=== PATIENT | female | born 1945 | race Caucasian/White ===

== ENCOUNTER 2018-10-13 23:06 | Emergency (ER) | payer OTHER ==
--- NOTE | 2018-10-14 00:04 | EDPHYS ---
Physician Documentation [facility] Name: Sugey Lemus Age: 73 yrs Sex: Female : 1945 Arrival Date: 10/13/2018 Time: 23:07 Bed 5 Private MD: ED Physician Guzman Reid HPI: 10/13 23:57 This 73 yrs old Female presents to ER via EMS with complaints of shoulder rn injury. 23:57 The patient or guardian complains of an injury, pain. left shoulder. Context: The rn problem was sustained at home, resulted from a fall, The patient experiences decreased range of motion, The patient reports no obvious deformity. Onset: The symptoms/episode began/occurred just prior to arrival. Modifying factors: the symptoms are alleviated by remaining still, The symptoms are aggravated by movement, rotation of arm. Associated signs and symptoms: The patient has no apparent associated signs or symptoms, Pertinent negatives: Numbness in left arm tingling. Severity of symptoms: At their worst the symptoms were moderate, in the emergency department the symptoms are unchanged. The patient has not experienced similar symptoms in the past. Reports tripped on object, + left shoulder hit recliner, + isolated injury to left shoulder. No head injury, no LOC, no blood thinners. . Historical: - Allergies: 23:13 No Known Allergies; ak1 - Home Meds: 23:19 levothyroxine 200 mcg tab 1 tab once daily [Active]; atorvastatin 20 mg oral tab 1 tab aa1 once daily [Active]; losartan-hydrochlorothiazide 100-25 mg oral tab 1 tab once daily [Active]; amitriptyline 75 mg Oral tab 1 tab once daily [Active]; hyoscyamine sulfate 0.125 mg SL subl before meals [Active]; diclofenac sodium 50 mg oral TbEC 1 tab 2 times per day [Active]; diphenhydramine HCl 50 mg Oral cap 1 cap once daily [Active]; tramadol 50 mg Oral tab 1 tab every 6 hours [Active]; gabapentin 300 mg oral cap 1 cap 3 times per day [Active]; omeprazole 20 mg Oral cpDR 1 cap once daily [Active]; Wellbutrin SR 150 mg Oral TbER 1 tab 2 times per day [Active]; - Immunization history:: Adult Immunizations unknown. - Social history:: Smoking status: Patient uses tobacco products, smokes one-half pack cigarettes per day. - Ebola Screening: : No symptoms or risks identified at this time. - Family history:: not pertinent. - Hospitalizations: : No recent hospitalization is reported. ROS: 23:59 Constitutional: Negative for fever, chills, and weight loss, Eyes: Negative for injury, rn pain, redness, and discharge, Neck: Negative for injury, pain, and swelling, Cardiovascular: Negative for chest pain, palpitations, and edema, Respiratory: Negative for shortness of breath, cough, wheezing, and pleuritic chest pain, Abdomen/GI: Negative for abdominal pain, nausea, vomiting, diarrhea, and constipation, MS/Extremity: + left shoulder injury and pain Skin: Negative for injury, rash, and discoloration, Neuro: Negative for headache, weakness, numbness, tingling, and seizure. Exam: 23:59 Constitutional: This is a well developed, well nourished patient who is awake, alert, rn and in no acute distress. Head/Face: Normocephalic, atraumatic. Eyes: Pupils equal round and reactive to light, extra-ocular motions intact. Lids and lashes normal. Conjunctiva and sclera are non-icteric and not injected. Cornea within normal limits. Periorbital areas with no swelling, redness, or edema. ENT: Nares patent. No nasal discharge, no septal abnormalities noted. Tympanic membranes are normal and external auditory canals are clear. Oropharynx with no redness, swelling, or masses, exudates, or evidence of obstruction, uvula midline. Mucous membranes moist. Neck: Trachea midline, no thyromegaly or masses palpated, and no cervical lymphadenopathy. Supple, full range of motion without nuchal rigidity, or vertebral point tenderness. No Meningismus. Cardiovascular: Regular rate and rhythm with a normal S1 and S2. No gallops, murmurs, or rubs. Normal PMI, no JVD. No pulse deficits. Respiratory: Lungs have equal breath sounds bilaterally, clear to auscultation and percussion. No rales, rhonchi or wheezes noted. No increased work of breathing, no retractions or nasal flaring. Abdomen/GI: Soft, non-tender, with normal bowel sounds. No distension or tympany. No guarding or rebound. No evidence of tenderness throughout. Back: No spinal tenderness. No costovertebral tenderness. Full range of motion. MS/ Extremity: Pulses equal, no cyanosis. Neurovascular intact. + limited ROM left shoulder with tenderness proximal left humerus Neuro: Awake and alert, GCS 15, oriented to person, place, time, and situation. Cranial nerves II-XII grossly intact. Motor strength 5/5 in all extremities. Sensory grossly intact. Cerebellar exam normal. Normal gait. Vital Signs: 23:13 BP 93 / 46; Pulse 78; Resp 20; Temp 98.2(O); Pulse Ox 92% on R/A; Weight 102.06 kg (R); ak1 Height 5 ft. 3 in. (160.02 cm) (R); Pain 8/10; 23:46 BP 99 / 59; Pulse 77; Resp 20; Temp 98.2; Pulse Ox 92% on R/A; ak1 23:13 Body Mass Index 39.86 (102.06 kg, 160.02 cm) ak1 MDM: 23:09 Patient medically screened. rn 23:59 Differential diagnosis: Anterior dislocation with fracture, humeral head fracture, rn glenoid fracture. Data reviewed: vital signs, nurses notes, radiologic studies, plain films, and as a result, I will discharge patient. Counseling: I had a detailed discussion with the patient and/or guardian regarding: the historical points, exam findings, and any diagnostic results supporting the discharge/admit diagnosis, radiology results, the need for outpatient follow up, to return to the emergency department if symptoms worsen or persist or if there are any questions or concerns that arise at home. Response to treatment: the patient's symptoms have mildly improved after treatment. Special discussion: I discussed with the patient/guardian in detail that at this point there is no indication for admission to the hospital. It is understood, however, that if the symptoms persist or worsen the patient needs to return immediately for re-evaluation. 10/13 23:10 Order name: ALLI Humerus LEFT rn 10/13 23:10 Order name: ALLI Shoulder LEFT 2 view rn Administered Medications: No medications were administered Disposition: 10/14/18 00:03 Discharged to Home. Impression: Displaced proximal left humeral neck fracture, closed. - Condition is Stable. - Discharge Instructions: Humerus Fracture Treated With Immobilization. - Prescriptions for Tylenol- Codeine #3 300-30 mg Oral Tablet - take 1 tablet by ORAL route every 6 hours As needed; 20 tablet. - Medication Reconciliation Form, Thank You Letter, Antibiotic Education, Prescription Opioid Use form. - Follow up: Skip Perez MD; When: As needed; Reason: Recheck today's complaints, Re-evaluation by your physician. - Problem is new. - Symptoms have improved. Signatures: Dispatcher [employer] EDMS Catalina Houston, RN RN aa1 Guzman Reid MD MD rn Krenek, Amber, RN RN ak1 Corrections: (The following items were deleted from the chart) 23:59 23:57 Reports tripped on object, + left shoulder hit recliner, + isolated injury to rn left shoulder. . rn 10/14 00:20 00:03 10/14/2018 00:03 Discharged to Home. Impression: Displaced proximal left humeral ak1 neck fracture, closed. Condition is Stable. Forms are Medication Reconciliation Form, Thank You Letter, Antibiotic Education, Prescription Opioid Use. Follow up: Skip Perez; When: As needed; Reason: Recheck today's complaints, Re-evaluation by your physician. Problem is new. Symptoms have improved. rn
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
--- NOTE | 2018-10-14 09:02 | RAD REPORT ---
EXAM DESCRIPTION: RAD - Shoulder Left 2 View - 10/13/2018 11:46 pm CLINICAL HISTORY: Fall, arm pain COMPARISON: None. TECHNIQUE: Internal and external rotation views of the left shoulder were obtained. FINDINGS: Transverse fracture is present at the surgical neck. Fracture is also evident in the great er tuberosity. No dislocation of the humeral head. No pathologic component. AC joint degenerative miguel nges are present but relatively mild. Acromial humeral joint space is narrowed. No fracture of the cl avicle or scapula seen. IMPRESSION: Transverse fracture of the cervical neck with additional oblique fracture through the gr eater tuberosity.
--- NOTE | 2018-10-14 09:04 | RAD REPORT ---
EXAM DESCRIPTION: RAD - Humerus Left - 10/13/2018 11:46 pm CLINICAL HISTORY: Fall, arm pain COMPARISON: Left shoulder same date FINDINGS: Transverse surgical neck fracture is again noted. There is a much more pronounced 1 full s haft width displacement of the proximal humerus shaft relative to the humeral head when compared to t he left shoulder exam. Greater tuberosity fracture again noted. Elsewhere the humerus shaft is intact. No acute finding at the elbow joint. No pathologic changes se en. No foreign body in the soft tissues. IMPRESSION: Transverse left humerus surgical neck fracture with 1 full shaft width displacement. Greater tuberosity fracture without significant displacement
== END 2018-10-14 00:20 | disposition home or self-care (01) ==
LOC: ER 23:06
DX: S42.212A Unspecified displaced fracture of surgical neck of left humerus, initial encounter for closed fracture (principal); S42.252A Displaced fracture of greater tuberosity of left humerus, initial encounter for closed fracture; W01.190A Fall on same level from slipping, tripping and stumbling with subsequent striking against furniture, initial encounter; Y92.009 Unspecified place in unspecified non-institutional (private) residence as the place of occurrence of the external cause; F17.210 Nicotine dependence, cigarettes, uncomplicated; Z79.891 Long term (current) use of opiate analgesic; Z79.899 Other long term (current) drug therapy
CPT/HCPCS: 99284

== ENCOUNTER 2019-01-17 11:09 | Emergency (ER) | payer OTHER ==
--- OUTSIDE RECORDS SUMMARY | 2019-01-17 11:21 | XMS REPORT ---
:1945 [facility] Address [address] [place] [address] Dr. Okeefe [address] [place] [id number] Care Team Providers Name Role Phone Unavailable Unavailable Unavailable Problems This patient has no known problems. Allergies, Adverse Reactions, Alerts This patient has no known allergies or adverse reactions. Medications This patient has no known medications.
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
== END 2019-01-17 14:17 | disposition home or self-care (01) ==
LOC: ER 11:09
DX: S00.83XA Contusion of other part of head, initial encounter (principal); V49.50XA Passenger injured in collision with unspecified motor vehicles in traffic accident, initial encounter; I10 Essential (primary) hypertension; Z88.5 Allergy status to narcotic agent
CPT/HCPCS: 70450; 70486; 72125; 76377; 99284